=== PATIENT | male | born 1930 | race Caucasian/White ===

== ENCOUNTER 2021-07-02 12:43 | Outpatient (CLI) | payer OTHER | END 2021-07-02 12:44 | disposition home or self-care (01) | LOC: COV 12:43 | PROVIDERS: ATTEND Internal Medicine Interventional Cardiology | DX: Z01.812 Encounter for preprocedural laboratory examination (principal); I73.9 Peripheral vascular disease, unspecified; Z20.822 Contact with and (suspected) exposure to COVID-19 ==

== ENCOUNTER 2021-11-19 20:03 | Outpatient (CLI) | payer OTHER | END 2021-11-19 20:04 | disposition short-term general hospital (02) | LOC: EMS 20:03 | DX: R07.89 Other chest pain (principal) | CPT/HCPCS: A0425; A0427 ==